=== PATIENT | male | born 1960 | race Hispanic/Latino ===

== ENCOUNTER 2017-06-13 06:53 | Day surgery (SDC) | payer BC ==
[~2017-06-13] VITALS: Ht 172.7 cm; Wt 88.5 kg
[~2017-06-13 06:53] MED LIST: SODIUM CHLORIDE 0.9% 1000ML 1,000 ML IV ONE
[2017-06-13 07:05] VITALS: BP 137/72
[2017-06-13] MEDS ORDERED: SODIUM CHLORIDE 0.9% 1000ML 1,000 ML IV ONE (07:20)
[2017-06-13] MEDS ORDERED: MVIT PO (08:44)
[2017-06-13] MEDS ORDERED: PROPOFOL 10 MG/ML 20ML VIAL IV ONE (09:11)
[2017-06-13 09:34] VITALS: BP 88/43
== END 2017-06-13 10:10 ==
LOC: ENDO 06:53 → DAH 06:53 → ENDO 10:10
PROVIDERS: ATTEND Internal Medicine Gastroenterology
DX: Z12.11 Encounter for screening for malignant neoplasm of colon (principal); Z90.49 Acquired absence of other specified parts of digestive tract; D12.4 Benign neoplasm of descending colon; K62.1 Rectal polyp
CPT/HCPCS: 45380; 45385; 88305; A4606; J2704; J7030 ×2